=== PATIENT | male | born 1990 | race Caucasian/White ===

== ENCOUNTER 2019-06-01 16:10 | Inpatient (IN) ==
[2019-06-01 16:37] LABS: Appearance Urine Clear (Clear); Bacteria Urine Automated Negative (Negative); Blood Urine Negative (Negative); Color Urine Dark Yellow; Epithelial Cell Urine Auto 0-5 /lpf (0-5); Glucose Urine UA Negative (Negative); Ketones Urine 1+ (Negative); Leukocyte Esterase Urine Negative (Negative); Nitrite Urine Positive (Negative); Protein Urine Trace (Negative); Specific Gravity Urine 1.035 (1.000-1.030); Urobilinogen Urine Negative (Negative); pH Urine 5.5 (4.5-7.5)
[2019-06-01 16:40] LABS: Bilirubin Urine 1+ (Negative)
[2019-06-01 16:42] LABS: Ictotest Urine Positive (Negative)
[2019-06-01 17:04] LABS: Amphetamines+Metham, Urine Neg (Neg); Barbiturates, Urine Neg (Neg); Benzodiazepine, Urine Neg (Neg); Cocaine, Urine Neg (Neg); MDMA (Ecstacy), Urine Neg (Neg); Methadone, Urine Neg (Neg); Opiate, Urine Neg (Neg); Phencyclidine, Urine Neg (Neg)
[2019-06-01 17:06] LABS: Basophils # (auto) 0.05 K/uL (0-0.2); Basophils % (auto) 0.4 %; Eosinophils # (auto) 0.08 K/uL (0-0.5); Eosinophils % (auto) 0.6 %; Hematocrit (blood only) 44.7 % (42-52); Hemoglobin 15.1 g/dL (14.0-18.0); Immature Granulocytes # (auto) 0.04 K/uL (0.00-0.02); Immature Granulocytes % (auto) 0.3 %; Lymphocytes # (auto) 1.68 K/uL (1.2-3.4); Lymphocytes % (auto) 12.9 %; Mean Corpuscular Hemoglobin 29.5 pg (25-34); Mean Corpuscular Hgb Conc 33.8 g/dL (32-36); Mean Corpuscular Volume 87.3 fL (80-100); Mean Platelet Volume 11.7 fL (7.4-10.4); Monocytes # (auto) 1.01 K/uL (0.11-0.59); Monocytes % (auto) 7.8 %; Neutrophils # (auto) 10.14 K/uL (1.4-6.5); Platelet Count 234 K/uL (130-400); RDW Coefficient of Variation 14.2 % (11.5-14.5); RDW Standard Deviation 45.2 fL (36.4-46.3); Red Blood Count 5.12 M/uL (4.7-6.1)
[2019-06-01 17:23] LABS: Albumin Level 3.7 gm/dl (3.4-5.0); BUN Creatinine Ratio 9.6 (10-20); Calcium 9.2 mg/dl (8.5-10.1); Creatinine Clr Calc Pharmacy 111.7 ml/min; Est GFR (African American) 112.7; Est GFR (Non-African American) 97.3; Potassium 3.5 mmol/L (3.5-5.1)
[2019-06-01 17:25] LABS: Salicylate < 1.7 mg/dl (2.8-20)
[2019-06-01 17:26] LABS: Acetaminophen < 2 ug/ml (10-30)
[2019-06-01 17:33] LABS: Albumin Globulin Ratio 0.9 (0.9-2); Bilirubin,Total 1.1 mg/dl (0.2-1); Globulin 4.4 gm/dl (2.5-4.0); Thyroid Stimulating Hormone 1.34 uIu/ml (0.300-4.500); Total Protein 8.1 gm/dl (6.4-8.2)
--- NOTE | 2019-06-01 20:48 | Emergency Department Note ---
Entered by Luis Lxu acting as a scribe for Jay Swan DO History of Present Illness General Chief Complaint: Mental Health Evaluation Stated Complaint: MENTAL HEALTH Source: patient History of Present Illness Provider complaint: feels depressed Onset (ago): unknown Duration: getting worse History of same: Yes Context: + not taking psychiatric medications Associated psychiatric symptoms: + depression and + suicidal ideation; no eveline icidal ideation, no auditory hallucinations and no visual hallucinations The patient is a 28 year old male w/ PMHx of Asthma, PTSD, depression, anxiety, and ADHD who presents to the ED w/ CC of worsening depression that has been an ongoing issue for some time. The patient states he has been seen in the ED for this problem 3 times recently with his last visit being 6 days ago. The patient reports that he has reached his "breaking point" and had suicidal thoughts 2 days ago. The patient states he is not sure why his depression is worsening. The patient has a plan to smash his car into something or overdose. The patient has a history of one suicide attempt 2 years ago. The patient adds that he has not been taking any psych medications due to not having any insurance. The patient denies any changes in his eating or drinking habits as well as any AVH or HI. Home Medications Home Medications Medication Instructions Recorded Confirmed Type No Known Home Medications 06/01/19 06/01/19 History Allergies Allergy/AdvReac Type Severity Reaction Status Date / Time grass pollen-perennial rye, Allergy Congested Verified 06/01/19 16:43 standar tramadol AdvReac Seizure Verified 06/01/19 16:43 Past Med/Surg History Medical History Asthma (Chronic) Anxiety Depression Surgical History History of eye surgery (Resolved) History of placement of ear tubes (Resolved) Family History Other No pertinent family history in first degree relatives Social History Preferred Language: Georgian Communication Ability: Effective Visual Impairment: No Limitations Hearing Ability: Normal Acute Care Physical Therapist Required: No Beliefs That Will Affect Care: None current occupational status: employed Feels Safe at Home: Yes Smoking Status: Never smoker Hx Alcohol Use: No Review of Systems See HPI for pertinent positives & negatives. and A total of 10 systems reviewed and were otherwise negative Physical Exam Vital Signs Vital Signs - 24 hr 06/01/19 16:12 06/01/19 18:10 Temperature 36.8 C Temperature Source Oral Sepsis Recent Fever Within 48 Hours No Sepsis Action Taken by Nursing No Action Required Pulse Rate 76 Pulse Rate [Finger] 87 Pulse Rhythm [Finger] Regular Pulse Strength [Finger] Normal Respiratory Rate 20 18 Respiratory Effort / Characteristics Non-Labored Spontaneous Respiratory Depth Normal Respiratory Pattern Regular Blood Pressure 129/77 Blood Pressure [Left Arm] 122/61 Blood Pressure Mean 94 Blood Pressure Mean [Left Arm] 81 Blood Pressure Position [Left Arm] Lying Pulse Oximetry 95 98 Oxygen Delivery Method Room Air Room Air GENERAL: Sitting up in bed wearing [employer] uniform, alert, depressed appearing, well nourished, no distress, non-toxic EYE EXAM: normal conjunctiva. OROPHARYNX: no exudate, no erythema, lips, buccal mucosa, and tongue normal and mucous membranes are moist NECK: supple, no nuchal rigidity, no adenopathy, non-tender LUNGS: Clear to auscultation. Normal chest wall mechanics HEART: no murmurs, S1 normal and S2 normal ABDOMEN: abdomen soft, non-tender, normo-active bowel, sounds, no masses, no rebound or guarding. BACK: Back is symmetrical on inspection and there is no deformity, no midline tenderness, no CVA tenderness. SKIN: no rashes and no bruising UPPER EXTREMITIES: upper extremities are grossly normal. LOWER EXTREMITIES: No pitting edema. NEURO EXAM: Normal sensorium, cranial nerves II-XII grossly intact, normal spe ech, no gross weakness of arms, no gross weakness of legs. PSYCH: Admits to with plan. Denies AVH and HI. Course ED COURSE: Vital signs were reviewed and showed hypertension. The patients medical record was reviewed The above diagnostic studies were performed and reviewed. ED treatments and interventions as stated above. 1619: The patient was evaluated in room A07. A complete history and physical examination was performed. 1958: The patient was evaluated by the psych caser up and accepted to [address] [place] [address]. 2007: Upon reevaluation, the patient is resting in bed. I discussed my findings with the patient and he understands and agrees with the treatment plan. Based on the patients age, coexisting illnesses, exam and lab findings the decision to treat as an inpatient was made. The patient remained stable while under my care. The patient will be evaluated for further management. Medical Decision Making Differential Diagnosis Differential diagnoses considered include mood disorder, infection, hypoglycemia, electrolyte abnormalities, cardiac sources, intracerebral event, toxicologic, neurologic, as well as others. Medical Records Attestation: I reviewed the patient's medical records. Home Medications Current Medication List: was personally reviewed by me Laboratory Data Attestation: I reviewed the patient's lab results. Result diagrams: 06/01/19 16:42 06/01/19 16:42 Lab Results 06/01/19 06/01/19 06/01/19 Range/Units 16:25 16:25 16:42 WBC 13.00 H (4.8-10.8) K/uL RBC 5.12 (4.7-6.1) M/uL Hgb 15.1 (14.0-18.0) g/dL Hct 44.7 (42-52) % MCV 87.3 (80-100) fL MCH 29.5 (25-34) pg MCHC 33.8 (32-36) g/dL RDW Std Deviation 45.2 (36.4-46.3) fL RDW Coeff of Mable 14.2 (11.5-14.5) % Plt Count 234 (130-400) K/uL MPV 11.7 H (7.4-10.4) fL Immature Gran % (Auto) 0.3 % Neut % (Auto) 78.0 % Lymph % (Auto) 12.9 % Weld % (Auto) 7.8 % Eos % (Auto) 0.6 % Baso % (Auto) 0.4 % Immature Gran # (Auto) 0.04 H (0.00-0.02) K/uL Neut # (Auto) 10.14 H (1.4-6.5) K/uL Lymph # (Auto) 1.68 (1.2-3.4) K/uL Weld # (Auto) 1.01 H (0.11-0.59) K/uL Eos # (Auto) 0.08 (0-0.5) K/uL Baso # (Auto) 0.05 (0-0.2) K/uL Sodium (136-145) mmol/L Potassium (3.5-5.1) mmol/L Chloride (98-107) mmol/L Carbon Dioxide (21-32) mmol/L Anion Gap (3-11) BUN (7-18) mg/dl Creatinine (0.6-1.4) mg/dl Est Cr Clr Drug Dosing ml/min Est GFR ( Amer) Est GFR (Non-Af Amer) BUN/Creatinine Ratio (10-20) Glucose (70-99) mg/dl Calcium (8.5-10.1) mg/dl Total Bilirubin (0.2-1) mg/dl AST (15-37) U/L ALT (12-78) U/L Alkaline Phosphatase (45-117) U/L Total Protein (6.4-8.2) gm/dl Albumin (3.4-5.0) gm/dl Globulin (2.5-4.0) gm/dl Albumin/Globulin Ratio (0.9-2) TSH (0.300-4.500) uIu/ml Urine Color Dark Yellow Urine Appearance Clear (Clear) Urine pH 5.5 (4.5-7.5) Ur Specific [place] 1.035 H (1.000-1.030) Urine Protein Trace H (Negative) Urine Glucose (UA) Negative (Negative) Urine Ketones 1+ H (Negative) Urine Blood Negative (Negative) Urine Nitrite Positive A (Negative) Urine Bilirubin 1+ H (Negative) Urine Urobilinogen Negative (Negative) Ur Leukocyte Esterase Negative (Negative) Urine WBC (Auto) 1-5 (0-5) /hpf Urine RBC (Auto) 5-10 H (0-4) /hpf U Hyaline Cast (Auto) 5-10 H (0-5) /lpf U Epithel Cells (Auto) 0-5 (0-5) /lpf Urine Bacteria (Auto) Negative (Negative) Nasal Screen MRSA (PCR) (Negative) Salicylates (2.8-20) mg/dl Urine Opiates Screen Neg (Neg) Ur Methadone, Qual Neg (Neg) Acetaminophen (10-30) ug/ml Urine Barbiturates Neg (Neg) Ur Phencyclidine (PCP) Neg (Neg) U Amphetamin/Meth Scrn Neg (Neg) MDMA (Ecstasy) Screen Neg (Neg) U Benzodiazepines Scrn Neg (Neg) Ur Cocaine Metabolite Neg (Neg) U Marijuana (THC) Screen Pos H (Neg) Ethyl Alcohol mg/dL (0-3) mg/dl 06/01/19 06/01/19 06/01/19 Range/Units 16:42 16:42 16:42 WBC (4.8-10.8) K/uL RBC (4.7-6.1) M/uL Hgb (14.0-18.0) g/dL Hct (42-52) % MCV (80-100) fL MCH (25-34) pg MCHC (32-36) g/dL RDW Std Deviation (36.4-46.3) fL RDW Coeff of Mable (11.5-14.5) % Plt Count (130-400) K/uL MPV (7.4-10.4) fL Immature Gran % (Auto) % Neut % (Auto) % Lymph % (Auto) % Weld % (Auto) % Eos % (Auto) % Baso % (Auto) % Immature Gran # (Auto) (0.00-0.02) K/uL Neut # (Auto) (1.4-6.5) K/uL Lymph # (Auto) (1.2-3.4) K/uL Weld # (Auto) (0.11-0.59) K/uL Eos # (Auto) (0-0.5) K/uL Baso # (Auto) (0-0.2) K/uL Sodium 138 (136-145) mmol/L Potassium 3.5 (3.5-5.1) mmol/L Chloride 105 (98-107) mmol/L Carbon Dioxide 25 (21-32) mmol/L Anion Gap 9.0 (3-11) BUN 10 (7-18) mg/dl Creatinine 1.04 (0.6-1.4) mg/dl Est Cr Clr Drug Dosing 111.7 ml/min Est GFR ( Amer) 112.7 Est GFR (Non-Af Amer) 97.3 BUN/Creatinine Ratio 9.6 L (10-20) Glucose 89 (70-99) mg/dl Calcium 9.2 (8.5-10.1) mg/dl Total Bilirubin 1.1 H (0.2-1) mg/dl AST 14 L (15-37) U/L ALT 25 (12-78) U/L Alkaline Phosphatase 77 (45-117) U/L Total Protein 8.1 (6.4-8.2) gm/dl Albumin 3.7 (3.4-5.0) gm/dl Globulin 4.4 H (2.5-4.0) gm/dl Albumin/Globulin Ratio 0.9 (0.9-2) TSH 1.340 (0.300-4.500) uIu/ml Urine Color Urine Appearance (Clear) Urine pH (4.5-7.5) Ur Specific [place] (1.000-1.030) Urine Protein (Negative) Urine Glucose (UA) (Negative) Urine Ketones (Negative) Urine Blood (Negative) Urine Nitrite (Negative) Urine Bilirubin (Negative) Urine Urobilinogen (Negative) Ur Leukocyte Esterase (Negative) Urine WBC (Auto) (0-5) /hpf Urine RBC (Auto) (0-4) /hpf U Hyaline Cast (Auto) (0-5) /lpf U Epithel Cells (Auto) (0-5) /lpf Urine Bacteria (Auto) (Negative) Nasal Screen MRSA (PCR) (Negative) Salicylates < 1.7 L (2.8-20) mg/dl Urine Opiates Screen (Neg) Ur Methadone, Qual (Neg) Acetaminophen < 2 L (10-30) ug/ml Urine Barbiturates (Neg) Ur Phencyclidine (PCP) (Neg) U Amphetamin/Meth Scrn (Neg) MDMA (Ecstasy) Screen (Neg) U Benzodiazepines Scrn (Neg) Ur Cocaine Metabolite (Neg) U Marijuana (THC) Screen (Neg) Ethyl Alcohol mg/dL < 3.0 (0-3) mg/dl 06/01/19 Range/Units 17:08 WBC (4.8-10.8) K/uL RBC (4.7-6.1) M/uL Hgb (14.0-18.0) g/dL Hct (42-52) % MCV (80-100) fL MCH (25-34) pg MCHC (32-36) g/dL RDW Std Deviation (36.4-46.3) fL RDW Coeff of Mable (11.5-14.5) % Plt Count (130-400) K/uL MPV (7.4-10.4) fL Immature Gran % (Auto) % Neut % (Auto) % Lymph % (Auto) % Weld % (Auto) % Eos % (Auto) % Baso % (Auto) % Immature Gran # (Auto) (0.00-0.02) K/uL Neut # (Auto) (1.4-6.5) K/uL Lymph # (Auto) (1.2-3.4) K/uL Weld # (Auto) (0.11-0.59) K/uL Eos # (Auto) (0-0.5) K/uL Baso # (Auto) (0-0.2) K/uL Sodium (136-145) mmol/L Potassium (3.5-5.1) mmol/L Chloride (98-107) mmol/L Carbon Dioxide (21-32) mmol/L Anion Gap (3-11) BUN (7-18) mg/dl Creatinine (0.6-1.4) mg/dl Est Cr Clr Drug Dosing ml/min Est GFR ( Amer) Est GFR (Non-Af Amer) BUN/Creatinine Ratio (10-20) Glucose (70-99) mg/dl Calcium (8.5-10.1) mg/dl Total Bilirubin (0.2-1) mg/dl AST (15-37) U/L ALT (12-78) U/L Alkaline Phosphatase (45-117) U/L Total Protein (6.4-8.2) gm/dl Albumin (3.4-5.0) gm/dl Globulin (2.5-4.0) gm/dl Albumin/Globulin Ratio (0.9-2) TSH (0.300-4.500) uIu/ml Urine Color Urine Appearance (Clear) Urine pH (4.5-7.5) Ur Specific [place] (1.000-1.030) Urine Protein (Negative) Urine Glucose (UA) (Negative) Urine Ketones (Negative) Urine Blood (Negative) Urine Nitrite (Negative) Urine Bilirubin (Negative) Urine Urobilinogen (Negative) Ur Leukocyte Esterase (Negative) Urine WBC (Auto) (0-5) /hpf Urine RBC (Auto) (0-4) /hpf U Hyaline Cast (Auto) (0-5) /lpf U Epithel Cells (Auto) (0-5) /lpf Urine Bacteria (Auto) (Negative) Nasal Screen MRSA (PCR) Negative (Negative) Salicylates (2.8-20) mg/dl Urine Opiates Screen (Neg) Ur Methadone, Qual (Neg) Acetaminophen (10-30) ug/ml Urine Barbiturates (Neg) Ur Phencyclidine (PCP) (Neg) U Amphetamin/Meth Scrn (Neg) MDMA (Ecstasy) Screen (Neg) U Benzodiazepines Scrn (Neg) Ur Cocaine Metabolite (Neg) U Marijuana (THC) Screen (Neg) Ethyl Alcohol mg/dL (0-3) mg/dl Blood Pressure Blood Pressure Findings: Elevated blood pressure Blood Pressure Disposition: Referred to patients primary care provider MDM Narrative Patient is a 28-year-old male with a past medical history of depression that presents the ER for suicidal ideations with a clear plan to crash his car or overdose. He has done this once before in the past. He notes he should be on medications but has not taken any in the past year due to insurance issues. Blood work was obtained and shows mild leukocytosis at 13,000. BMP was unremarkable. Bilirubin was slightly elevated at 1.1 but no significant transaminitis. No abdominal pain. TSH was negative. UA with small amount of ketones suggesting dehydration. UA did have nitrates but without white cells or any symptoms will not treat at this time. MRSA negative. Salicylates acetaminophen and tox was positive for marijuana. Alcohol was negative. Patient was updated bedside. Was agreeable on a 201 and was accepted to [address]. For suicidal ideations with a plan. Impression & Plan Mood disorder, Suicidal ideation Discharge Plan Visit Data Chief Complaint: Mental Health Evaluation Stated Complaint: MENTAL HEALTH ED Provider: Jay Swan Discharge Problem: Mood disorder, Suicidal ideation Patient Disposition: Admitted As Inpatient Forms Stand Alone Forms: My [facility] Prescriptions Prescriptions: No Action No Known Home Medications RF: 0 Referrals Referrals: PCP,NO [Primary Care Provider] - The scribe's documentation has been prepared under my direction and personally reviewed by me in its entirety. I confirm that the note above accurately reflects all work, treatment, procedures, and medical decision making performed by me.
[2019-06-01] MEDS ORDERED: MAGNESIUM HYDROXIDE SUSP 30 ML UDC PO PRN (20:57)
[2019-06-01] MEDS ORDERED: BISMUTH SUBSALICYLATE PER ML OMNICELL CHARGE PO PRN (20:57)
[2019-06-01] MEDS ORDERED: ALUMINUM/MAGNESIUM SUSP 30 ML UDC PO PRN (20:57)
[2019-06-01] MEDS ORDERED: SODIUM CHLORIDE 0.65% NA SOLN 45 ML (OCEAN) PRN (20:57)
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
--- NOTE | 2019-06-03 11:58 | Psychiatric Progress Note ---
Date of Service June 03, 2019 Impression / Recommendations (1) Suicidal ideation: 06/02 - Continue inpatient treatment, q 15 min checks for safety, participation in groups and therapy, and working on healthy coping skills and discharge safety plan. 06/03 - Pt reports SI last evening due to feeling overwhelmed with his circumstances and feeling as though little could be done to change his situation. (2) Mood disorder: 06/02 - Pt reports worsening mood for the past month in the context of psychosocial stressors and illicit drug use. Differential includes major depression and substance induced depression. - Patient reports multiple trials of antidepressants in the past, none of which were helpful. It is not clear to me if another trial is indicated or likely to be helpful, given the suspected degree of substance abuse and likely substance induced depression - Patient agreed to sign STEVEN for [facility] in [place] where he previously had court ordered treatment to clarify previous diagnoses and med trials. - Get collateral information -patient unwilling to sign release for her parents, but agreed to sign for grandparents. 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 06/03 - Reviewed extensive list of prior medication trials. Reviewed basic patient education regarding duration of treatment often necessary to determine if medication is beneficial. - As it is not clear that medication is indicated, and patient reports poor response to multiple prior medications, it is recommended that the focus of his admission be on ways in which we can help to change his situation and provide him with appropriate supports - Pt reporting willingness to look into D&A rehab as an option, ideally medication consideration would be completed after patient has been sober for a significant period of time to determine if anxiety and depressive symptoms reported are truly related to a formal psychiatric diagnosis in which medications are indicated - Continue to engage patient in group and recreational programming (3) Cannabis abuse: 06/02 - patient reports using cannabis daily to every other day. Advised of risks of ongoing use and recommendations for abstinence. He indicates unde rstanding but no desire to change behavior. (4) Methamphetamine abuse: 06/02 - Patient was not forthcoming with his substance use. UDS + methamphetamine on 05/26/19 ER visit. Discussed with him the importance of being honest in treatment, and that we will be better able to help him if he can do that. - Refer to [facility] for substance abuse treatment (as he does not have insurance). - Patient requesting stimulant prescription, such as Adderall. Advised that this is contraindicated due to his substance abuse, that we do not have a confirmed diagnosis of ADHD, that we would not prescribe controlled substances here. 06/03 - It is likely patient is continuing to minimize his substance use; he does admit to regular use of marijuana to benefit his anxiety symptoms. He also report intermittent use of cocaine and "one time" use of methamphetamine - "because someone said it would work like Adderall" - Continue to engage patient in discussion to review desire treatment options - patient reporting a belief that he would benefit from inpatient D&A rehabilitation to prevent his substance use from becoming a problem. Pt states he is willing to consider a rehab referral - Pt completed phone interview for an intensive case resolution specialist today (5) Anxiety: 06/02 -differential includes generalized anxiety, substance-induced anxiety, withdrawal. 06/03 - Pt admits to utilizing substances as a way to deal with reported anxiety, admits to need to develop healthy coping strategies - Pt feels as though he would benefit from rehab as a way to address his anxiety without relying in illicit substances, specifically marijuana - Continue to encourage participation in group and recreational therapies to facilitate development of coping skills Risk Factors Assessment Male: Yes Do You Have Access To A Gun?: No Health Problems: No Mental Health Diagnoses: Yes Substance Use Disorders: Yes Previous Attempt: Yes Family History of Suicide: No Previous Psychiatric Hospitalization: Yes Hopelessness: Yes Smoker: No Protective Factors Assessment : No () Responsible for Young Children: No (lost custody of child) Employed: Yes ([employer]) Stable Relationships: No Supportive Family: No Good Rapport with Provider: No Interval History Identifying Information LEAH CORCORAN is a 28-year-old M who is currently homeless, has a history of depression and a previous overdose, and was admitted on 06/01/19 20:57 on a 201 voluntary commitment for depression and suicidal thoughts with a plan to crash his car or overdose. Chief Complaint "I don't know. I just feel like no one wants to help, no medicines work. I don't know what to do." Review of Systems Notes Constitutional: denied Cardiovascular: denied Respiratory: denied Gastrointestinal: denied Neurological: denied Psychiatric: denies symptoms other than stated above Total of at least 10 systems reviewed, pertinent positives as above and in HPI. Sleep Information Total Hours of Sleep: 6.5 Sleep Comments: pt on q-15 minute checks Meal Information Percent Meal Consumed - Breakfast: 50 Percent Meal Consumed - Lunch: 50 Percent Meal Consumed - Dinner: 50 Subjective Subjective Patient was seen & assessed and interval progress reviewed with treatment team. Staff report the patient has been irritable with staff at times, has been somewhat isolative. Pt rated his mood a 3/10 and "hopeless" last evening. He did report active suicidality on the evening shift. Pt did complete an application for medical assistance yesterday. Pt was seen today to assess progress since admission. Pt begins by verbalizing frustration that he is "judged" on the unit, and that "no one wants to help me." Pt states that he does not feel he is "a drug addict", and reports - "I use marijuana because it helps my anxiety, it's the only thing that works. The meth was one time, and only because someone said it would feel like the Adderall I used to take. I guess there was cocaine too, but that was years ago and just here and there." We reviewed that even if patient did not feel that his substance abuse was a problem, that continuing down his current path may lead to increased "self medication" and develop into further mental health and possible legal concerns. This provider inquired about patient's thoughts on benefits of a rehab facility. Pt states, "I feel like that would help me. I did groups like that in long-term and I really benefitted. I think that's where I need to be, but how do I even get there?" This provider explained that our social workers would be able to help him with these referrals if desired. This provider reviewed prior med [facility] trials with the patient, which reportedly include 10+ antidepressant medications. This provider discussed with the patient that this may be indicating that more effort needs to go into changing his situation at this time. Pt admits that he did experience increased hopelessness last evening, as it relates to his current circumstances. He admits that he was having suicidal thoughts. Pt denies any SI today. He denies other acute needs or concerns at this time. Physical Exam Psychiatric Orientation: alert, oriented x 3 and cooperative (superficially) Apperance: appropriately dressed (casually, in short-sleeve gym shirt and sweatpants), appropriately groomed and appeared stated age Eye Contact: good eye contact Motor Behavior: steady gait and station and no abnormal motor movements Speech: normal rate/rhythm/volume of speech Affect: + depressed affect Mood: + depressed mood and + anxious mood Thought Process: goal directed thought process, clear/coherent thought process and thought association intact Thought Content: + cognitive distortions (reporting belief that he is "being judged" or people "turning against me"), reality based without delusions and + hopelessness (with regard to ability to change his circumstances) Suicidal Thoughts: denies suicidal thoughts (denies presently, though admits to SI last evening) Homicidal Thoughts: denies homicidal thoughts Hallucinations: no auditory hallucinations and no visual hallucinations Cognition: remote memory grossly intact, attention grossly intact and language grossly intact Estimated Intelligence: consistent with education level Insight: + limited insight (minimizing severity of substance use, externalizing blame) Judgement: + fair judgement (verbalizing willingness to consider treatment options, desiring change) Vital Signs (Past 24 Hours) Last Vital Signs Temp 36.7 C 06/03/19 06:52 Pulse 73 06/03/19 06:53 Resp 18 06/03/19 06:52 BP 122/77 06/03/19 06:53 Pulse Ox 98 06/01/19 21:42 Results & Data Current Inpatient Medications Current Inpatient Medications: Current Inpatient Medications Acetaminophen (Tylenol) 650 mg PO Q4H PRN PRN Reason: Headache or Minor Fever Stop: 07/01/19 20:56 Al Hydrox/Mg Hydrox/Simethicone (Maalox) 30 ml PO Q4H PRN PRN Reason: GI Upset Stop: 07/01/19 20:56 Bismuth Subsalicylate (Kaopectate) 15 ml PO PRN PRN PRN Reason: Loose Stool Stop: 07/01/19 20:56 Hydroxyzine HCl (Vistaril) 50 mg PO HSZ PRN PRN Reason: Insomnia Stop: 07/01/19 20:56 Last Admin: 06/01/19 22:29 Dose: 50 mg Documented by: Hydroxyzine HCl (Vistaril) 25 mg PO Q4H PRN PRN Reason: Anxiety Stop: 07/01/19 20:56 Last Admin: 06/02/19 18:14 Dose: 25 mg Documented by: Magnesium Hydroxide (Milk Of Magnesia) 30 ml PO DAILY PRN PRN Reason: Constipation Stop: 07/01/19 20:56 Sodium Chloride ([place] Nasal) 1 - 2 sprays NA PRN PRN PRN Reason: Nasal Dryness/Congestion Stop: 07/01/19 20:56 Mental Health & Subst Abuse Tx Therapist Name of Therapist: Denies Nurse Executive Name of Nurse Executive: Denies Post Discharge Appointments Primary Care Physician Name Of Family Doctor: Denies CPT Code CPT Code 09565
[2019-06-03] MEDS: ACETAMINOPHEN 325 MG TAB PO PRN (20:26)
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
[2019-06-05] MEDS ORDERED: PRAZOSIN HCL 1 MG CAP PO SCH (22:00)
[2019-06-06] MEDS: GUANFACINE HCL 1 MG TAB PO SCH ×2 (15:27→21:11)
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
[2019-06-07] MEDS: GUANFACINE HCL 1 MG TAB PO SCH ×2 (09:04→20:19)
[2019-06-07] MEDS: ACETAMINOPHEN 325 MG TAB PO PRN ×2 (15:12→20:19)
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
[2019-06-08] MEDS: GUANFACINE HCL 1 MG TAB PO SCH (08:31)
[2019-06-08] MEDS ORDERED: GUANFACINE HCL 1 MG TAB PO SCH ×2 (09:30→21:00)
--- NOTE | 2019-06-08 09:45 | Discharge Summary ---
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 Mental Health & Subst Abuse Tx Psychiatrist Name of Psychiatrist: None. Therapist Name of Therapist: None. Motorboat Operator Name of Motorboat Operator: [facility] Siddhartha Polanco Phone Number for Motorboat Operator: [phone] Case Management Appointment Comment: [address], [place] [address] Post Discharge Appointments Primary Care Physician Name Of Family Doctor: None. Smoking Cessation Counseling Tobacco Cessation Medication Prescribed at Discharge: Not Applicable/Non-Smoker Other #1: Name of Aftercare Appointment: Casper Mario Phone Number of Aftercare Appointment: Date of Aftercare Appointment: 06/08/19 Time of Aftercare Appointment: 1pm Aftercare Appointment Comment: [address] [place] [address] Contact Information Contact Information Comment: Homeless, no phone. Discharge Plan Discharge Items Patient Disposition: Drug & Alcohol Rehab Reason For Visit: DEPRESSION Discharge Diagnosis: PTSD; Mood disorder Condition on Discharge: Fair Activity: Resume your previous activity Non-emergency contact: Primary Care Provider, Psychiatrist, Therapist and [place] Call non-emergency contact if: you have any medication questions and your symptoms worsen Follow-up/Referrals: PCP,NO [Primary Care Provider] - Diet: Regular Addtl Attending Provider Instructions: SPECIAL CARE INSTRUCTIONS: 1. Follow through with your scheduled aftercare appointments. If unable to keep an appointment, please call to reschedule. 2. Take your medication only as prescribed. Medication should not be changed or stopped without the approval of your doctor. In the event of worsening symptoms or concerns about side effects, contact your doctor immediately. 3. Utilize new healthy coping skills, anger management skills, and stress management skills learned during your hospitalization. Journal feelings and process them with a support person. Identify stressors or situations that may result in relapse, deterioration or inappropriate behaviors and develop a plan to deal with those issues. 4. If your coping skills are ineffective and you are in crisis, contact your outpatient providers for direction. If unable to reach your providers, please call the CAN HELP LINE AT or go to the closest Emergency Room. 5. Avoid alcohol and un-prescribed drugs. 6. You have been provided with the Mental Health Advance Directives Pamphlet for your review. AFTERCARE APPOINTMENTS: * Please call your insurance company prior to your scheduled appointment to confirm your aftercare providers are covered. Take your insurance information to your appointments. WHO TO CALL AND WHEN: Medical Emergencies: For questions or emergencies related to your hospital stay, please contact the Inpatient Behavioral Health Unit at [phone]. A accredited farm manager is on-call 01/04 for the Behavioral Health Unit for emergencies At any time you feel your situation is an emergency, you may also call 911 im mediately. Your Doctors Instructions noted above were prepared by provider Lulú Bolanos PA-C. Pending Studies at Discharge: No Stand-Alone Forms: My [facility] [address] Skilled Items Patient informed of condition?: Yes DNR: No Discharge Level of Care: Other Communicable Disease: No Discharge Prognosis: Stable Lines: None Urinary Catheter: No Medications and DC Order Prescriptions: New guanfacine 1 mg tablet 0.5 mg PO BID 30 Days Qty: 30 RF: 0 hydroxyzine HCl 50 mg tablet 50 mg PO HS PRN (Reason: insomnia) 30 Days Qty: 30 RF: 0 No Action No Known Home Medications RF: 0 Discharge Orders: Discharge Order (Routine); Ordered 06/08/19 Ordered By: Lulú Bolanos Admission Data Admit Date/Time: 06/01/19 20:57 Attending Provider: Marina Posada Admit Provider: Shila Dale Primary Care Provider: PCP,NO Other Interventions: Discharge Summary Assessment (RN) Last Done: 06/08/19 09:24 PSY Interdisciplinary Discharge Planning Last Done: 06/08/19 10:09
== END 2019-06-08 11:52 | disposition alcohol treatment (31) | DRG 885 ==
LOC: ED 16:10 → 3S 20:57
DX: F41.9 Anxiety disorder, unspecified; J45.909 Unspecified asthma, uncomplicated; Z81.3 Family history of other psychoactive substance abuse and dependence; Z91.048 Other nonmedicinal substance allergy status; Z88.5 Allergy status to narcotic agent; F15.10 Other stimulant abuse, uncomplicated; F43.10 Post-traumatic stress disorder, unspecified; R45.851 Suicidal ideations; Z91.5 Personal history of self-harm; Z81.1 Family history of alcohol abuse and dependence; Z65.3 Problems related to other legal circumstances; F39 Unspecified mood [affective] disorder; F12.10 Cannabis abuse, uncomplicated; Z59.0 Homelessness